=== PATIENT | male | born 1970 | race Caucasian/White ===

== ENCOUNTER 2019-08-25 13:05 | Emergency (ER) | payer OTHER ==
--- NOTE | 2019-08-25 15:15 | ED Physician Documentation ---
History of Present Illness - Stated complaint Stated Complaint: BILAT LEG PX - Chief complaint Chief Complaint: Ext Problem - History obtained from History obtained from: Patient, Family - History of Present Illness Timing: Yesterday Pain level now: 0 - Additonal information Additional information: This is a 49-year-old man who presents with his complains that he had some recent travel yesterday flew from [facility] to [place] and then they took a leisurely drive here stopped and had dinner. While was sitting on the plane he started developed some pain and discomfort in both legs from just above the knee down all the way through the foot describes it as a pressure and a burning and a tingling is worse at the feet. He is never had anything like this before. He says if he lays down it does improve it a little bit but sitting makes that the absolute worst. He was concerned he might have a DVT. He denies any back pain although he has had lower back "issues" in the past he does not remember ever having an MRI of his lower spine. He denies burning with urination and these had no urinary continence. He does have hypercholesterolemia started taking a statin 8 or 9 months ago. He denies shortness of breath or chest pain. He is concerned about the DVT was heightened because 3 weeks ago he had driven for 12 hours from [place] to [place] then within a couple days drove 13 hours from [place] to [place] and then back to [place]. The other day he was laying in bed and he sat up and got really extremely dizzy. The symptoms had abated through the day and have not bothered him again since then. He denies history of diabetes. Review of Systems Constitutional: denies: Fever Cardiac: denies: Chest pain / pressure, Palpitations Respiratory: denies: Dyspnea GI: denies: Nausea, Vomiting : denies: Dysuria, Incontinent Musculoskeletal: denies: Back pain, Extremity pain Neurologic: reports: Other (Recent episode of vertigo). denies: Generalized weakness, Focal weakness, Numbness, Syncope PD PAST MEDICAL HISTORY - Past Surgical History Past Surgical History: Yes - Present Medications Home Medications: Ambulatory Orders Medication Instructions Recorded Confirmed Oxycodone HCl/Acetaminophen 1 - 2 each PO Q6H PRN #15 tablet 04/12/15 [Percocet 5-325 mg Tablet] diazePAM [Valium] 5 mg PO TID PRN #15 tablet 04/12/15 predniSONE [Deltasone] 20 mg PO [id number] #21 tab 04/12/15 - Allergies Allergies/Adverse Reactions: Allergies Allergy/AdvReac Type Severity Reaction Status Date / Time No Known Drug Allergies Allergy Verified 04/12/15 18:45 - Social History Does the pt smoke?: No Smoking Status: Never smoker Does the pt drink ETOH?: Yes Does the pt have substance abuse?: No PD ED PE NORMAL - Vitals Vital signs reviewed: Yes - General General: Alert and oriented X 3, No acute distress, Well developed/nourished - HEENT HEENT: Atraumatic, PERRL, Moist mucous membranes - Neck Neck: Thyroid normal - Cardiac Cardiac: RRR, No murmur, Strong equal pulses - Respiratory Respiratory: No respiratory distress, Clear bilaterally - Derm Derm: Normal color, Warm and dry, No rash - Extremities Extremities: No deformity, No tenderness to palpate, Normal ROM s pain, No edema, No calf tenderness / cord - Neuro Neuro: Alert and oriented X 3, [employer] director 2-12 intact, No motor deficit, No sensory deficit, Normal speech, Other (Reflexes at the quadriceps are symmetrical bilaterally) - Psych Psych: Normal mood, Normal affect Results - Vitals Vitals: Vital Signs - 24 hr 08/25/19 13:27 Temperature 37 C Heart Rate 66 Respiratory 18 Rate Blood Pressure 121/69 O2 Saturation 97 Oxygen O2 Source Room air - Labs Labs: Laboratory Tests 08/25/19 08/25/19 16:10 16:13 D-Dimer < 200.0 L POC Whole Bld Glucose 96 PD MEDICAL DECISION MAKING - ED course Complexity details: reviewed results, d/w patient ED course: Discussed the screening d-dimer was negative. Clinically the patient does not have a DVT. Blood sugar was normal. The distribution of this sensory feeling is a stocking glove type distribution. He has been on a statin for 8 or 9 months and it is a possibility that is causing a peripheral neuropathy. Is also had some lower back issues and that could be a concern as well. He is reassured that there is no blood clot is not diabetic and discharged home with instructions to follow-up with his primary care provider and to discuss whether the statin could be the source of the sensory issues. Departure - Departure Disposition: 01 Home, Self Care Clinical Impression: Neuropathy Condition: Good Instructions: ED Neuropathy Peripheral Follow-Up: [facility] [Provider Group] [facility] [Provider Group] Comments: Follow-up with a primary care provider if your symptoms persist for work-up for peripheral neuropathy. Consideration that the statin could be contributing to this or an issue with your lower back. There is no evidence of a DVT.
[2019-08-25 17:07] VITALS: BP 125/87
== END 2019-08-25 17:07 | disposition home or self-care (01) ==
LOC: ED 13:05
DX: G62.9 Polyneuropathy, unspecified (principal); E78.00 Pure hypercholesterolemia, unspecified
CPT/HCPCS: 36415; 85379; 99283; 99284